=== PATIENT | male | born 1945 | race Hispanic/Latino ===

== ENCOUNTER 2019-06-01 10:30 | Inpatient (IN) | payer MEDICARE ==
[~2019-06-01] VITALS: Ht 177.8 cm; Wt 82.8 kg
[~2019-06-01 10:30] MED LIST: AMLO10TA7 PO; ASPI-555 PO; FOLI1TAB85 PO; FURO20TA4 PO; SODI650T PO
[2019-06-01 10:54] LABS: EOSINOPHILS % (AUTO) 4.8 % (0.0-8.0); HEMATOCRIT 38.8 % (42-54); LYMPHOCYTES % (AUTO) 16.2 % (21.0-51.0); MEAN CORPUSCULAR HEMOGLOBIN 28.7 pg (27.0-33.0); MEAN CORPUSCULAR HGB CONC 31.4 g/dL (32.0-36.0); MEAN CORPUSCULAR VOLUME 91.3 fL (79-99); MONOCYTES % (AUTO) 5.4 % (3.0-13.0); NEUTROPHILS % (AUTO) 72.3 % (40.0-77.0); PLATELET COUNT (AUTO) 194 K/uL (130-400); RED BLOOD CELL COUNT(AUTO) 4.25 MIL/uL (4.50-6.20); RED CELL DISTRIBUTION WIDTH 14.6 % (11.0-15.5); WHITE BLOOD COUNT (AUTO) 7.4 K/uL (4.8-10.8)
[2019-06-01] MEDS ORDERED: FUROSEMIDE 10 MG/ML 2ML VIAL ONE (10:58)
[2019-06-01] MEDS ORDERED: NITROGLYCERIN 1GM/1 INCH PACKET TD ONE (10:59)
[2019-06-01] MEDS ORDERED: FUROSEMIDE 10 MG/ML 4ML VIAL ONE ×2 (10:59→11:01)
[2019-06-01 11:03] LABS: CREATININE 5.8 mg/dL (0.5-1.5); POTASSIUM 4.8 mmol/L (3.5-5.1)
[2019-06-01 11:04] LABS: INR 1.01 (0.85-1.15); PARTIAL THROMBOPLASTIN TIME 29.6 SEC (26.3-35.5); PROTHROMBIN TIME 10.9 SEC (9.6-11.6)
[2019-06-01 11:08] LABS: ALBUMIN 3.2 g/dL (3.5-5.0); BILIRUBIN,TOTAL 0.7 mg/dL (0.2-1.0); TOTAL PROTEIN, SERUM 7.9 g/dL (6.0-8.3)
[2019-06-01] MEDS ORDERED: ZOSYN 3.375GM+NS 50ML 50 ML IV ONE (11:56)
[2019-06-01] MEDS ORDERED: VANCOMYCIN 1GM+NS 250ML 0 ML IV ONE (11:57)
[2019-06-01] MEDS ORDERED: VANCOMYCIN 1.25 GM in SODIUM CHLORIDE 0.9% 250 ML IV SCH (12:30)
[2019-06-01] MEDS ORDERED: VANCOMYCIN PROTOCOL PER PHARMACY IV SCH (13:00)
[2019-06-01] MEDS ORDERED: COMPOUND IV REFRIGERATED 1 EACH IVSOLN MISC PRN (13:00)
[2019-06-01] MEDS ORDERED: IPRATROPIUM/ALBUTEROL SULFATE 3 ML SOLUTION IH PRN (13:00)
[2019-06-01] MEDS ORDERED: LEVOFLOXACIN 500 MG/D5W 100 ML 100 ML IV SCH (13:00)
[2019-06-01 13:08] LABS: APPEARANCE,URINE Clear (CLEAR); BILIRUBIN,URINE Negative (NEGATIVE); COLOR,URINE Yellow (YELLOW); GLUCOSE, URINE (UA) Negative (NEGATIVE); KETONES,URINE Negative (NEGATIVE); LEUKOCYTE ESTERASE ,URINE Negative (NEGATIVE); NITRATE,URINE Negative (NEGATIVE); OCCULT BLOOD,URINE Negative (NEGATIVE); PROTEIN,URINE POS 2+ mg/dL (NEGATIVE)
[2019-06-01 13:32] LABS: BACTERIA,URINE None Seen /HPF (None Seen); SQUAMOUS EPITHELIAL CELL,UR 0-2 /HPF (0-2); WBC,URINE None Seen /HPF (0-1)
[2019-06-01 16:41] VITALS: BP 147/72
[2019-06-01] MEDS ORDERED: ATOR40TA71 PO (17:06)
[2019-06-01] MEDS ORDERED: HEPARIN SODIUM 5000UNIT/ML 1ML VIAL IV PRN (17:45)
[2019-06-01 20:00] VITALS: BP 164/74
[2019-06-01 23:45] VITALS: BP 169/71
[2019-06-02 03:30] VITALS: BP 172/65
[2019-06-02 08:30] VITALS: BP 171/70
--- NOTE | 2019-06-02 10:35 | NUR ---
CALL DR URBANO TO REPORT CT RESULTS AND PATIENT'S CONCERNS. PATIENT WANT TO LEAVE A IF DR URBANO DOEST ANSWER. VOICE MAIL BOX FULL. WILL TRY AGAIN LATER.
[2019-06-02 11:05] VITALS: BP 172/73
--- NOTE | 2019-06-02 12:00 | NUR ---
Initial: Pt currently in isolation. Call placed to EC-spouse Danyell. Per Mrs Sam pt lives w her. HE uses a cane for ambulation and requires assistance w ADLs. Pt has provider services 3hr/day. Pt attends [facility] from 8a-12p. Pts son provides transportation. Per Mrs Sam dcp is for home. CM to continue to follow and wait for Md recommendations. Addendum: 06/02/19 at 1719 by ELISABET HUSAIN Amended: Links added.
--- NOTE | 2019-06-02 12:28 | NUR ---
AMA PATIENT DECIDED TO GO AMA. I GOT DR URBANO ON THE PHONE TO TALK TO HIM ABOUT THE CT RESULTS BUT PATIENT STILL INSISTED ON GOING HOME. AMA FORM SIGNED. PATIENT CALLED HIS SON TO COME AND PICK HIM UP. IV DISCONTINUED, CATHETER INTACT. NO DISTRESS NOTED UPON DISCHARGE. TELE D/C MONITOR AWARE/
[2019-06-03] MEDS ORDERED: LEVOFLOXACIN 250 MG/D5W 50ML 50 ML IVPB SCH (09:00)
[2019-06-03] MEDS ORDERED: VANCOMYCIN 1.25 GM in SODIUM CHLORIDE 0.9% 250 ML IV SCH (13:00)
[2019-06-04 07:11] LABS: HEPATITIS A ANTIBODY IGM Negative (Negative); HEPATITIS B CORE IGM Negative (Negative); HEPATITIS Bs ANTIGEN SCREEN P Negative (Negative)
== END 2019-06-02 12:45 | disposition left against medical advice (07) | DRG 193 ==
LOC: EDH 10:30 → EDHIP 12:00 → 4AH 13:50
PROVIDERS: ADMIT Internal Medicine; ATTEND Internal Medicine
PROC: 5A1D70Z Performance of Urinary Filtration, Intermittent, Less than 6 Hours Per Day (ICD-10-PCS; principal; 2019-06-01)
DX: J18.9 Pneumonia, unspecified organism (principal); N18.6 End stage renal disease; I12.0 Hypertensive chronic kidney disease with stage 5 chronic kidney disease or end stage renal disease; E11.22 Type 2 diabetes mellitus with diabetic chronic kidney disease; E11.51 Type 2 diabetes mellitus with diabetic peripheral angiopathy without gangrene; E78.00 Pure hypercholesterolemia, unspecified; E78.5 Hyperlipidemia, unspecified; I25.10 Atherosclerotic heart disease of native coronary artery without angina pectoris; Z53.29 Procedure and treatment not carried out because of patient's decision for other reasons; Z95.1 Presence of aortocoronary bypass graft; Z99.2 Dependence on renal dialysis; Z95.5 Presence of coronary angioplasty implant and graft
CPT/HCPCS: 36415; 71045; 71250; 80053; 80074; 81001; 82550; 83605; 84484; 85025; 85610; 85730; 87040; 87804; 90935; 93005; 94664; G0378; J1644; J1940; J1956; J2543; J3370; J7030

== ENCOUNTER 2019-10-15 08:09 | Emergency (ER) | payer MEDICARE ==
[~2019-10-15 08:09] MED LIST changes: -ASPI-555 PO; +ATOR40TA71 PO; -SODI650T PO
[2019-10-15 09:19] LABS: CREATININE 5.8 mg/dL (0.5-1.5); POTASSIUM 4.5 mmol/L (3.5-5.1)
== END 2019-10-15 09:45 | disposition home or self-care (01) ==
LOC: EDH 08:09
DX: J81.0 Acute pulmonary edema (principal); I12.0 Hypertensive chronic kidney disease with stage 5 chronic kidney disease or end stage renal disease; N18.6 End stage renal disease; E87.70 Fluid overload, unspecified; Z87.891 Personal history of nicotine dependence; Z99.2 Dependence on renal dialysis
CPT/HCPCS: 36415; 80048; 93005

== ENCOUNTER 2020-03-28 15:08 | Inpatient (IN) | payer MEDICARE ==
[~2020-03-28] VITALS: Ht 177.8 cm; Wt 80.8 kg
[~2020-03-28 15:08] MED LIST changes: +AMLO-258 PO; -AMLO10TA7 PO
[2020-03-28 16:38] LABS: BASOPHILS % (AUTO) 0.2 % (0.0-5.0); EOSINOPHILS % (AUTO) 0.6 % (0.0-8.0); HEMATOCRIT 30.2 % (42-54); LYMPHOCYTES % (AUTO) 7.3 % (21.0-51.0); MEAN CORPUSCULAR HEMOGLOBIN 29.5 pg (27.0-33.0); MEAN CORPUSCULAR HGB CONC 31.8 g/dL (32.0-36.0); MEAN CORPUSCULAR VOLUME 92.9 fL (79-99); MONOCYTES % (AUTO) 5.5 % (3.0-13.0); PLATELET COUNT (AUTO) 189 K/uL (130-400); RED BLOOD CELL COUNT(AUTO) 3.25 MIL/uL (4.50-6.20); RED CELL DISTRIBUTION WIDTH 15.3 % (11.0-15.5); WHITE BLOOD COUNT (AUTO) 11.3 K/uL (4.8-10.8)
[2020-03-28 17:00] LABS: CREATININE 5.8 mg/dL (0.5-1.5); POTASSIUM 5.6 mmol/L (3.5-5.1)
[2020-03-28 17:05] LABS: ALBUMIN 2.4 g/dL (3.5-5.0); BILIRUBIN,TOTAL 0.7 mg/dL (0.2-1.0); TOTAL PROTEIN, SERUM 7.6 g/dL (6.0-8.3)
[2020-03-28] MEDS ORDERED: ZOSYN 3.375GM+NS 50ML 50 ML IV ONE (17:17)
[2020-03-28] MEDS ORDERED: VANCOMYCIN 1G/250ML KIT 250 ML IV SCH (20:15)
[2020-03-28] MEDS ORDERED: ACETAMINOPHEN WITH CODEINE 1 TAB TAB PO PRN ×2 (20:15)
[2020-03-28] MEDS ORDERED: ACETAMINOPHEN 325 MG TAB PO PRN ×2 (20:15)
[2020-03-28] MEDS ORDERED: ONDANSETRON 4MG INJ IV PRN (20:15)
[2020-03-28] MEDS ORDERED: VANCOMYCIN PROTOCOL PER PHARMACY IV PRN (20:15)
[2020-03-28] MEDS ORDERED: ACETAMINOPHEN 500 MG TABLET ONE (20:39)
[2020-03-28] MEDS: FAMOTIDINE 20MG TAB PO SCH (21:00)
[2020-03-28] MEDS ORDERED: VANCOMYCIN 1G 1.5 GM in 0.9% NACL 250ML 250 ML IV ONE (21:00)
[2020-03-28 21:08] LABS: HEMOGLOBIN A1C 5.7 % (4.0-6.0)
[2020-03-28 23:45] VITALS: BP 121/41
[2020-03-29 04:00] VITALS: BP 101/55
[2020-03-29 06:16] LABS: BASOPHILS % (AUTO) 0.2 % (0.0-5.0); EOSINOPHILS % (AUTO) 0.1 % (0.0-8.0); HEMATOCRIT 28.3 % (42-54); LYMPHOCYTES % (AUTO) 5.9 % (21.0-51.0); MEAN CORPUSCULAR HEMOGLOBIN 30.1 pg (27.0-33.0); MEAN CORPUSCULAR HGB CONC 32.5 g/dL (32.0-36.0); MEAN CORPUSCULAR VOLUME 92.5 fL (79-99); MONOCYTES % (AUTO) 4.4 % (3.0-13.0); NEUTROPHILS % (AUTO) 88.9 % (40.0-77.0); PLATELET COUNT (AUTO) 181 K/uL (130-400); RED BLOOD CELL COUNT(AUTO) 3.06 MIL/uL (4.50-6.20); RED CELL DISTRIBUTION WIDTH 15.3 % (11.0-15.5)
[2020-03-29 06:20] LABS: CREATININE 6.8 mg/dL (0.5-1.5)
[2020-03-29 06:27] LABS: POTASSIUM 6.1 mmol/L (3.5-5.1)
[2020-03-29 08:00] VITALS: BP 123/66
[2020-03-29] MEDS: ENOXAPARIN SODIUM 30 MG/0.3 ML SQ SCH (09:57)
[2020-03-29 11:35] VITALS: BP 81/38
[2020-03-29] MEDS ORDERED: KAYEXALATE 15GM/60ML PO SCH (12:00)
[2020-03-29] MEDS: ZOSYN 3.375GM+NS 50ML 50 ML IV SCH ×2 (14:21→21:37)
[2020-03-29 16:00] VITALS: BP 132/65
[2020-03-29 20:04] VITALS: BP 137/49
[2020-03-29] MEDS: FAMOTIDINE 20MG TAB PO SCH (21:36)
[2020-03-29 23:44] VITALS: BP 109/46
[2020-03-30 04:06] VITALS: BP 137/51
[2020-03-30 06:15] LABS: HEMATOCRIT 29.9 % (42-54); MEAN CORPUSCULAR HEMOGLOBIN 29.4 pg (27.0-33.0); MEAN CORPUSCULAR HGB CONC 31.8 g/dL (32.0-36.0); MEAN CORPUSCULAR VOLUME 92.6 fL (79-99); RED BLOOD CELL COUNT(AUTO) 3.23 MIL/uL (4.50-6.20); RED CELL DISTRIBUTION WIDTH 15.3 % (11.0-15.5); WHITE BLOOD COUNT (AUTO) 11.5 K/uL (4.8-10.8)
[2020-03-30 06:33] LABS: ALBUMIN 2.2 g/dL (3.5-5.0); BILIRUBIN,TOTAL 0.7 mg/dL (0.2-1.0); TOTAL PROTEIN, SERUM 7.4 g/dL (6.0-8.3)
[2020-03-30 06:47] LABS: CREATININE 7.9 mg/dL (0.5-1.5); POTASSIUM 6.3 mmol/L (3.5-5.1)
[2020-03-30 07:59] VITALS: BP 116/44
[2020-03-30] MEDS: ENOXAPARIN SODIUM 30 MG/0.3 ML SQ SCH (09:00)
[2020-03-30] MEDS: ZOSYN 3.375GM+NS 50ML 50 ML IV SCH ×2 (09:38→20:56)
[2020-03-30 11:27] VITALS: BP 115/26
[2020-03-30] MEDS ORDERED: VANCOMYCIN 1G/250ML KIT 250 ML IV NR (15:00)
[2020-03-30] MEDS ORDERED: HEPARIN 5,000 UNIT VIAL ONE (15:29)
[2020-03-30] MEDS ORDERED: VANCOMYCIN 1G 1.5 GM in 0.9% NACL 250ML 250 ML IV SCH (15:53)
[2020-03-30 16:00] VITALS: BP 118/54
[2020-03-30 19:54] VITALS: BP 113/49
[2020-03-30] MEDS: FAMOTIDINE 20MG TAB PO SCH (20:56)
[2020-03-30] MEDS ORDERED: DEXTROSE 50%-WATER 50 ML DISP.SYRIN IV PRN (21:45)
[2020-03-30] MEDS ORDERED: GLUCAGON 1MG KIT 1 MG ML IM PRN (21:45)
[2020-03-30] MEDS: APIXABAN 2.5 MG TABLET PO SCH (23:05)
[2020-03-30 23:32] VITALS: BP 130/52
[2020-03-31 03:48] LABS: MEAN CORPUSCULAR HEMOGLOBIN 29.5 pg (27.0-33.0); MEAN CORPUSCULAR HGB CONC 31.4 g/dL (32.0-36.0); RED BLOOD CELL COUNT(AUTO) 2.98 MIL/uL (4.50-6.20); RED CELL DISTRIBUTION WIDTH 15.2 % (11.0-15.5); WHITE BLOOD COUNT (AUTO) 11.3 K/uL (4.8-10.8)
[2020-03-31 04:05] LABS: ALBUMIN 2.1 g/dL (3.5-5.0); BILIRUBIN,TOTAL 0.7 mg/dL (0.2-1.0); CREATININE 5.3 mg/dL (0.5-1.5); POTASSIUM 4.7 mmol/L (3.5-5.1); TOTAL PROTEIN, SERUM 7.2 g/dL (6.0-8.3)
[2020-03-31 04:07] VITALS: BP 119/47
[2020-03-31] MEDS: INSULIN HUMULIN R 100 UNIT/ML 3ML SQ SCH ×2 (05:27→11:30)
[2020-03-31 06:12] LABS: HEPATITIS A ANTIBODY IGM Negative (Negative); HEPATITIS B CORE IGM Negative (Negative); HEPATITIS Bs ANTIGEN SCREEN P Negative (Negative)
[2020-03-31 08:00] VITALS: BP 89/67
[2020-03-31] MEDS: APIXABAN 2.5 MG TABLET PO SCH (08:52)
[2020-03-31] MEDS: ZOSYN 3.375GM+NS 50ML 50 ML IV SCH (08:52)
[2020-03-31] MEDS ORDERED: HONEY 1 APPL/ML TUBE TP SCH (09:00)
[2020-03-31] MEDS ORDERED: ALBUMIN (HUMAN) 25% 100 ML IV SCH (09:15)
[2020-03-31] MEDS ORDERED: MIDODRINE HCL 5 MG TABLET PO SCH (09:46)
[2020-03-31 12:00] VITALS: BP 97/58
[2020-03-31] MEDS ORDERED: IOHEXOL-350 75 ML VIAL IV ONE (15:55)
[2020-03-31] MEDS ORDERED: IOHEXOL-350 50ML VIAL IV ONE (15:55)
[2020-03-31 16:00] VITALS: BP 99/38
[2020-03-31] MEDS ORDERED: ATORVASTATIN 40 MG TABLET PO SCH (21:00)
== END 2020-03-31 17:10 | disposition left against medical advice (07) | DRG 871 ==
LOC: EDH 15:08 → EDHIP 20:07 → 3AH 23:21
PROVIDERS: ADMIT Internal Medicine; ATTEND Internal Medicine
PROC: 5A1D70Z Performance of Urinary Filtration, Intermittent, Less than 6 Hours Per Day (ICD-10-PCS; principal; 2020-03-30)
DX: A41.9 Sepsis, unspecified organism (principal); N18.6 End stage renal disease; L03.116 Cellulitis of left lower limb; L03.115 Cellulitis of right lower limb; L97.919 Non-pressure chronic ulcer of unspecified part of right lower leg with unspecified severity; L97.929 Non-pressure chronic ulcer of unspecified part of left lower leg with unspecified severity; I12.0 Hypertensive chronic kidney disease with stage 5 chronic kidney disease or end stage renal disease; I82.512 Chronic embolism and thrombosis of left femoral vein; E11.22 Type 2 diabetes mellitus with diabetic chronic kidney disease; D63.8 Anemia in other chronic diseases classified elsewhere; E11.51 Type 2 diabetes mellitus with diabetic peripheral angiopathy without gangrene; E78.00 Pure hypercholesterolemia, unspecified; E78.5 Hyperlipidemia, unspecified; E87.70 Fluid overload, unspecified; E87.5 Hyperkalemia; I25.10 Atherosclerotic heart disease of native coronary artery without angina pectoris; I25.2 Old myocardial infarction; I48.91 Unspecified atrial fibrillation; I65.29 Occlusion and stenosis of unspecified carotid artery; I70.1 Atherosclerosis of renal artery; Z79.899 Other long term (current) drug therapy; Z82.0 Family history of epilepsy and other diseases of the nervous system; Z82.3 Family history of stroke; Z82.49 Family history of ischemic heart disease and other diseases of the circulatory system; Z82.5 Family history of asthma and other chronic lower respiratory diseases; Z83.3 Family history of diabetes mellitus; Z91.19 Patient's noncompliance with other medical treatment and regimen; Z95.1 Presence of aortocoronary bypass graft; Z95.5 Presence of coronary angioplasty implant and graft; Z99.2 Dependence on renal dialysis; Z20.822 Contact with and (suspected) exposure to COVID-19
CPT/HCPCS: 36415; 71045; 73590; 80048; 80053; 80074; 80202; 82550; 82948; 83036; 83605; 84100; 84145; 85025; 85027; 86140; 87040; 87426; 90935; 93970; G0378; J1644; J1650; J2405; J2543; J3370; J7050; P9046; Q9967; U0003

== ENCOUNTER 2020-04-07 17:24 | Observation (INO) | payer MEDICARE ==
[~2020-04-07 17:24] MED LIST changes: -AMLO-258 PO; -ATOR40TA71 PO; -FURO20TA4 PO
[2020-04-07 18:27] LABS: BASOPHILS % (AUTO) 0.3 % (0.0-5.0); EOSINOPHILS % (AUTO) 0.3 % (0.0-8.0); HEMATOCRIT 31.6 % (42-54); MEAN CORPUSCULAR HEMOGLOBIN 29.5 pg (27.0-33.0); MEAN CORPUSCULAR HGB CONC 31.6 g/dL (32.0-36.0); MEAN CORPUSCULAR VOLUME 93.2 fL (79-99); MONOCYTES % (AUTO) 9.4 % (3.0-13.0); NEUTROPHILS % (AUTO) 74.6 % (40.0-77.0); PLATELET COUNT (AUTO) 263 K/uL (130-400); RED BLOOD CELL COUNT(AUTO) 3.39 MIL/uL (4.50-6.20); RED CELL DISTRIBUTION WIDTH 15.8 % (11.0-15.5)
[2020-04-07 18:40] LABS: INR 1.29 (0.85-1.15); PROTHROMBIN TIME 13.5 SEC (9.6-11.6)
[2020-04-07 18:41] LABS: PARTIAL THROMBOPLASTIN TIME 30.2 SEC (26.3-35.5)
[2020-04-07 18:43] LABS: ALBUMIN 2.4 g/dL (3.5-5.0); POTASSIUM 5.7 mmol/L (3.5-5.1); TOTAL PROTEIN, SERUM 7.9 g/dL (6.0-8.3)
[2020-04-07 18:50] LABS: APPEARANCE,URINE CLEAR (CLEAR); BILIRUBIN,URINE NEGATIVE (NEGATIVE); COLOR,URINE YELLOW (YELLOW); GLUCOSE, URINE (UA) NEGATIVE (NEGATIVE); KETONES,URINE NEGATIVE (NEGATIVE); LEUKOCYTE ESTERASE ,URINE TRACE (NEGATIVE); NITRATE,URINE NEGATIVE (NEGATIVE); OCCULT BLOOD,URINE SMALL (NEGATIVE); PH,URINE 5.5 (5.0-8.0); PROTEIN,URINE 30 mg/dL (NEGATIVE)
[2020-04-07 18:57] LABS: RBC,URINE 0-1 /HPF (0-1); YEAST,URINE BUDDING Rare /HPF (None Seen)
[2020-04-07 18:58] LABS: BACTERIA,URINE Few /HPF (None Seen); SQUAMOUS EPITHELIAL CELL,UR Few /HPF (0-2)
[2020-04-07] MEDS ORDERED: ASPIRIN 325 MG TABLET ONE (19:50)
[2020-04-07] MEDS ORDERED: CALCIUM GLUCONATE 1 GM/10 ML VIAL IV ONE (19:51)
[2020-04-07] MEDS ORDERED: DEXTROSE 50%-WATER 50 ML DISP.SYRIN IV ONE (19:52)
[2020-04-07] MEDS ORDERED: SODIUM BICARB 50MEQ 50ML VIAL 50 ML ONE (19:52)
[2020-04-07] MEDS ORDERED: INSULIN HUMULIN R 100 UNIT/ML 3ML ONE (19:53)
[2020-04-07 20:44] LABS: RAPID GROUP A STREP NEGATIVE (NEGATIVE)
[2020-04-07] MEDS ORDERED: ONDANSETRON HCL 4 MG/2 ML VIAL IV PRN (23:30)
[2020-04-07] MEDS ORDERED: SODIUM POLYSTYRENE SULFONATE 15 GM/60 ML ML ONE (23:30)
[2020-04-08 00:20] LABS: THYROID STIMULATING HORMONE 2.52 uIU/mL (0.36-3.74)
[2020-04-08 00:32] LABS: TROPONIN I 3.65 ng/mL (0.00-0.06)
[2020-04-08 05:58] LABS: HEMOGLOBIN A1C 5.6 % (4.0-6.0)
[2020-04-08 06:09] LABS: POTASSIUM 5.1 mmol/L (3.5-5.1)
[2020-04-08 06:12] LABS: CREATININE 9.1 mg/dL (0.5-1.5); TROPONIN I 3.72 ng/mL (0.00-0.06)
[2020-04-08] MEDS ORDERED: INSULIN HUMULIN R 100 UNIT/ML 3ML SQ SCH ×2 (07:30)
[2020-04-08] MEDS ORDERED: FAMOTIDINE/PF 20 MG/2 ML VIAL IV SCH ×2 (09:00)
[2020-04-08] MEDS ORDERED: ASPIRIN 325MG EC TAB 325 MG TABLET.DR PO SCH (09:00)
[2020-04-08] MEDS ORDERED: ENOXAPARIN SODIUM 30 MG/0.3 ML SQ SCH (09:00)
[2020-04-08] MEDS ORDERED: ENOXAPARIN SODIUM 30 MG/0.3 ML SQ ONE (09:33)
[2020-04-08] MEDS ORDERED: FAMOTIDINE/PF 20 MG/2 ML VIAL IV ONE (09:34)
[2020-04-08] MEDS ORDERED: HEPARIN SODIUM/PF 100UNIT/ML 5ML SYRINGE IV ONE (12:50)
[2020-04-08] MEDS ORDERED: HEPARIN SODIUM 5000UNIT/ML 1ML VIAL ONE (12:52)
[2020-04-08 14:34] LABS: TROPONIN I 3.65 ng/mL (0.00-0.06)
[2020-04-08 15:51] LABS: TROPONIN I 3.53 ng/mL (0.00-0.06)
[2020-04-08] MEDS ORDERED: ATORVASTATIN CALCIUM 40 MG TABLET ONE (20:54)
[2020-04-08] MEDS ORDERED: ATORVASTATIN CALCIUM 40 MG TABLET PO SCH (21:00)
[2020-04-09 07:11] LABS: BASOPHILS % (AUTO) 0.5 % (0.0-5.0); EOSINOPHILS % (AUTO) 0.4 % (0.0-8.0); HEMATOCRIT 30.1 % (42-54); LYMPHOCYTES % (AUTO) 9.5 % (21.0-51.0); MEAN CORPUSCULAR HGB CONC 30.9 g/dL (32.0-36.0); MEAN CORPUSCULAR VOLUME 93.8 fL (79-99); MONOCYTES % (AUTO) 9.3 % (3.0-13.0); NEUTROPHILS % (AUTO) 79.8 % (40.0-77.0); PLATELET COUNT (AUTO) 230 K/uL (130-400); RED BLOOD CELL COUNT(AUTO) 3.21 MIL/uL (4.50-6.20); RED CELL DISTRIBUTION WIDTH 15.6 % (11.0-15.5); WHITE BLOOD COUNT (AUTO) 10.5 K/uL (4.8-10.8)
[2020-04-09 07:19] LABS: CREATININE 7.1 mg/dL (0.5-1.5)
[2020-04-09 07:56] LABS: B-TYPE NATRIURETIC PEPTIDE > 5000 pg/mL (0-100)
[2020-04-09] MEDS ORDERED: ASPIRIN 325 MG TABLET ONE (08:46)
[2020-04-09] MEDS ORDERED: ENOXAPARIN SODIUM 30 MG/0.3 ML SQ ONE (08:47)
[2020-04-09] MEDS ORDERED: FAMOTIDINE/PF 20 MG/2 ML VIAL IV ONE (08:47)
== END 2020-04-09 09:22 | disposition left against medical advice (07) ==
LOC: EDH 17:24 → EDHIP 23:18
PROVIDERS: ADMIT Internal Medicine; ATTEND Internal Medicine
DX: R55 Syncope and collapse (principal); Z20.828 Contact with and (suspected) exposure to other viral communicable diseases; I95.9 Hypotension, unspecified; I12.0 Hypertensive chronic kidney disease with stage 5 chronic kidney disease or end stage renal disease; E11.22 Type 2 diabetes mellitus with diabetic chronic kidney disease; N18.6 End stage renal disease; E11.51 Type 2 diabetes mellitus with diabetic peripheral angiopathy without gangrene; R79.89 Other specified abnormal findings of blood chemistry; E87.70 Fluid overload, unspecified; E87.5 Hyperkalemia; I25.10 Atherosclerotic heart disease of native coronary artery without angina pectoris; E78.5 Hyperlipidemia, unspecified; E78.00 Pure hypercholesterolemia, unspecified; F17.200 Nicotine dependence, unspecified, uncomplicated; Z99.2 Dependence on renal dialysis; Z95.1 Presence of aortocoronary bypass graft; Z91.15 Patient's noncompliance with renal dialysis; Z79.82 Long term (current) use of aspirin; Z79.899 Other long term (current) drug therapy; W18.39XA Other fall on same level, initial encounter; Y93.89 Activity, other specified; Y92.009 Unspecified place in unspecified non-institutional (private) residence as the place of occurrence of the external cause
CPT/HCPCS: 36415 ×3; 70450; 71045; 72125; 80048 ×2; 80053; 80061; 81001; 82550 ×5; 82948 ×4; 83036; 83874 ×4; 83880 ×2; 84443; 84484 ×5; 85025 ×2; 85378; 85610; 85730; 87426; 87804 ×2; 87880; 93005 ×6; 99291; G0378 ×31; J0610; J1644; J1650 ×2; J1815; J3490 ×3; J7070; U0003; 90935; J1642